=== PATIENT | female | born 1965 | race Caucasian/White ===

== ENCOUNTER 2023-12-30 10:40 | Emergency (ER) | payer OTHER, BC ==
[2023-12-30] MEDS: Morphine 4 MG/ML Syringe IVPUSH ONE ×2 (11:11→11:54)
[2023-12-30] MEDS: Lactated Ringers 1,000 ML IV ONE (11:11)
[2023-12-30 11:15] LABS: BASOPHILS ABSOLUTE AUTO 0.1 K/mm3 (0.0-0.2); BASOPHILS PERCENT AUTO 0.6 % (0.0-1.0); EOSINOPHILS ABSOLUTE AUTO 0.2 K/mm3 (0.0-0.4); EOSINOPHILS PERCENT AUTO 2.5 % (0.0-6.0); HEMATOCRIT 40.2 % (37.0-47.0); HEMOGLOBIN 13.6 gm/dl (12.0-16.0); IMMATURE GRAN ABSOLUTE AUTO 0.07 K/mm3 (0.00-0.05); IMMATURE GRAN PERCENT AUTO 0.8 % (0.0-0.4); LYMPHOCYTES ABSOLUTE AUTO 1.8 K/mm3 (1.0-4.8); LYMPHOCYTES PERCENT AUTO 21.6 % (24.0-44.0); MEAN CORPUSCULAR HEMOGLOBIN 32.9 pg (28.0-32.0); MEAN CORPUSCULAR HGB CONC 33.8 g/dl (32.0-36.0); MEAN CORPUSCULAR VOLUME 97.1 fl (83.0-99.0); MEAN PLATELET VOLUME 11.2 fl (9.4-12.3); MONOCYTES ABSOLUTE AUTO 0.5 K/mm3 (0.0-0.8); MONOCYTES PERCENT AUTO 5.7 % (0.0-8.0); NEUTROPHILS ABSOLUTE AUTO 5.7 K/mm3 (1.8-7.7); NEUTROPHILS PERCENT AUTO 68.8 % (41.0-71.0); PLATELET COUNT,PLT 192 K/mm3 (150-400); RED BLOOD CELL COUNT 4.14 M/mm3 (4.10-5.30)
[2023-12-30 11:34] LABS: A/G RATIO 0.9 (1-2); ALBUMIN 3.1 g/dl (3.4-5.0); BILIRUBIN TOTAL 0.3 mg/dL (0.2-1.0); BUN/CREATININE RATIO 17.3 (14-18); CALCIUM 8.4 mg/dL (8.5-10.1); CREATININE 1.1 mg/dL (0.55-1.02); EST CRCL DRUG DOSING (CG) 46.96 mL/min; PROTEIN TOTAL,TP 6.4 g/dl (6.4-8.2)
[2023-12-30] MEDS: Sodium Chloride 0.9% 10 ML Syringe FLUSH ONE (11:46)
[2023-12-30] MEDS: Iopamidol 612 MG/ML 100 ML Bottle IVPUSH ONE (11:46)
[2023-12-30 12:15] LABS: ANION GAP 10.1 (5-15)
[2023-12-30 12:28] LABS: POTASSIUM,K 3.1 mEq/L (3.5-5.1)
[2023-12-30] MEDS ORDERED: Propofol 200 MG/20 ML SDV IVPUSH ONE (13:24)
[2023-12-30] MEDS ORDERED: Factor IX Complex Human 500 UNIT VIAL IV ONE (14:03)
[2023-12-30 14:19] LABS: INR 2.45; PROTHROMBIN TIME 24.5 SECONDS (9.7-12.0)
[2023-12-30] MEDS: Factor IX Complex Human 500 UNIT VIAL IV ONE (14:47)
[2023-12-30] MEDS: Phytonadione 10 MG in Sodium Chloride 0.9% 50 ML IV ONE (15:09)
[2023-12-30] MEDS ORDERED: Sodium Chloride 0.9% 500 ML ONE (15:43)
[2023-12-30] MEDS: fentaNYL 100 MCG/2 ML SDV IVPUSH ONE ×2 (16:07→16:25)
[2023-12-30 16:32] VITALS: BP 116/66; PULSE 88
[2023-12-30] MEDS: Lidocaine 1% with EPINEPHrine 1:100,000 20 ML MDV INJECT ONE (17:23)
== END 2023-12-30 17:04 ==
LOC: JD.ED 10:40
DX: S22.42XA Multiple fractures of ribs, left side, initial encounter for closed fracture (principal); S82.301A Unspecified fracture of lower end of right tibia, initial encounter for closed fracture; S27.2XXA Traumatic hemopneumothorax, initial encounter; K21.9 Gastro-esophageal reflux disease without esophagitis; E11.9 Type 2 diabetes mellitus without complications; E03.9 Hypothyroidism, unspecified; E66.9 Obesity, unspecified; Z79.01 Long term (current) use of anticoagulants; Z79.899 Other long term (current) drug therapy; Z88.5 Allergy status to narcotic agent; Z88.8 Allergy status to other drugs, medicaments and biological substances; Z68.31 Body mass index [BMI] 31.0-31.9, adult; V49.40XA Driver injured in collision with unspecified motor vehicles in traffic accident, initial encounter; Y92.410 Unspecified street and highway as the place of occurrence of the external cause
CPT/HCPCS: 32551; 36415; 36430; 70450; 71045; 71260; 72125; 73562; 73610; 74177; 80053; 83605; 83690; 85025; 85610; 86850; 86900; 86901; 93005; 96361; 96365; 96375; 96376; 99285; J2270; J3010; J3430; J3490; J7120; J7168; P9017; Q9967